=== PATIENT | female | born 1985 | race American Indian/Alaskan Native ===

== ENCOUNTER 2020-03-26 17:26 | Emergency (ER) | payer OTHER ==
[2020-03-26] MEDS ORDERED: SODIUM CHLORIDE 0.9% 1000 ML 1,000 ML IV ONE (17:48)
--- NOTE | 2020-03-26 17:49 | Emergency Department Report ---
ED Psych HPI - General Chief Complaint: Medical Clearance Stated Complaint: MH Time Seen by Provider: 03/26/20 17:36 Source: EMS Mode of arrival: Stretcher - History of Present Illness Initial Comments: Ms. Lara is a 34 years old female with no significant past medical history. Patient brought to the emergency room via EMS from a local gas station. Patient was laying on the grass in the parking lot of a [employer] gas station and then patient witnessed moving from the grass area to inside the bloody station looked at the camera in the down on the floor. Patient was not communicating with EMS however patient started talking after she get to the ER. Patient informed that she has been depressed for the last 2 weeks since she broke up with her girlfriend. Patient denied any suicidal ideation. She informed the nurse that she has been hearing voices however she denied that to me. She also denied any homicidal ideation or visual hallucination. Patient informed the nurse that she was taking Risperdal but she is out of it for the last 2 years. MD Complaint: feels depressed Associated Psychiatric Symptoms: depression - Related Data Allergies Allergy/AdvReac Type Severity Reaction Status Date / Time Unable to Assess Allergy Unverified 03/26/20 17:30 ED Review of Systems ROS: Stated complaint: MH Other details as noted in HPI Comment: All other systems reviewed and negative Constitutional: denies: chills, fever Respiratory: denies: cough, shortness of breath, SOB with exertion Cardiovascular: denies: chest pain, palpitations Gastrointestinal: denies: abdominal pain, nausea, vomiting, diarrhea, c onstipation, hematemesis, melena, hematochezia Neurological: denies: headache Psychiatric: depression, auditory hallucinations. denies: visual halluc inations, homicidal thoughts, suicidal thoughts ED Past Medical Hx - Social History Smoking Status: Unknown if ever smoked Substance Use Type: Other ED Physical Exam - General Limitations: Altered Mental Status General appearance: alert, in no apparent distress, other (Patient kept staring at the roof.) - ENT ENT exam: Present: mucous membranes dry - Neck Neck exam: Present: normal inspection, full ROM. Absent: tenderness, meningismus, lymphadenopathy, thyromegaly - Respiratory Respiratory exam: Present: normal lung sounds bilaterally - Cardiovascular Cardiovascular Exam: Present: regular rate, normal rhythm, normal heart sounds - GI/Abdominal GI/Abdominal exam: Present: soft, normal bowel sounds. Absent: distended, tenderness, guarding, rebound, rigid, organomegaly, mass, bruit, pulsatile mass, hernia - Extremities Exam Extremities exam: Present: normal inspection, full ROM, normal capillary refill. Absent: tenderness, pedal edema, joint swelling, calf tenderness - Back Exam Back exam: Present: normal inspection, full ROM. Absent: CVA tenderness (R), CVA tenderness (L) - Neurological Exam Neurological exam: Present: alert, oriented X3, CN II-XII intact, normal gait, reflexes normal. Absent: motor sensory deficit - Psychiatric Psychiatric exam: Present: depressed. Absent: manic, homicidal ideation, suicidal ideation - Skin Skin exam: Present: warm, intact, normal color ED Course Vital Signs 03/26/20 03/26/20 03/26/20 17:27 17:55 20:00 Temperature Pulse Rate 86 Respiratory 16 18 18 Rate Blood Pressure 141/92 Blood Pressure [Left] O2 Sat by Pulse 99 98 95 Oximetry 03/26/20 03/27/20 03/27/20 20:21 07:38 09:00 Temperature 98.7 F Pulse Rate 95 H 88 Respiratory 18 20 18 Rate Blood Pressure Blood Pressure 140/91 136/82 [Left] O2 Sat by Pulse 95 99 Oximetry ED Medical Decision Making - Lab Data Result diagrams: 03/26/20 18:43 03/26/20 17:55 - EKG Data -: EKG Interpreted by Me EKG shows normal: sinus rhythm Rate: normal - EKG Data Interpretation: no acute changes - Medical Decision Making Ms. Lara is a 34 years old female with no significant past medical history. Patient brought to the emergency room via EMS from a local gas station. Patient was laying on the grass in the parking lot of a [employer] station and then patient witnessed moving from the grass area to inside the [employer] station looked at the camera in the down on the floor. Patient was not communicating with EMS however patient started talking after she get to the ER. Patient informed that she has been depressed for the last 2 weeks since she broke up with her girlfri end. Patient denied any suicidal ideation. She informed the nurse that she has been hearing voices however she denied that to me. She also denied any homicidal ideation or visual hallucination. Patient informed the nurse that she was taking Risperdal but she is out of it for the last 2 years. Labs reviewed and is unremarkable. Patient obviously has acute psychosis. Patient is medically clear for psychiatric evaluation. Critical care attestation.: If time is entered above; I have spent that time in minutes in the direct care of this critically ill patient, excluding procedure time. ED Disposition Clinical Impression: Depression, Acute psychosis Disposition: [id number]/TX-65 PSY HOSP/PSY UNIT Is pt being admited?: No Condition: Stable Referrals: PRIMARY CARE, [Primary Care Provider] - 3-5 Days
[2020-03-26 18:31] LABS: BUN/Creatinine Ratio 14; Blood Urea Nitrogen 14 mg/dL (7-17); Calcium 9.2 mg/dL (8.4-10.2); Hemolysis Index 331
[2020-03-26 18:34] LABS: Alanine Aminotransferase 14 units/L (7-56); Albumin 3.9 g/dL (3.9-5)
[2020-03-26 19:04] LABS: Bilirubin,Direct < 0.2 mg/dL (0-0.2)
[2020-03-26 19:21] LABS: Hematocrit TNR % (30.3-42.9); Hemoglobin TNR gm/dl (10.1-14.3); Mean Corpuscular HGB Conc TNR % (30-34); Mean Corpuscular Volume TNR fl (79-97); Red Blood Count TNR M/mm3 (3.65-5.03); Red Cell Distribution Width TNR % (13.2-15.2)
[2020-03-26 19:22] LABS: Platelet Count TNR K/mm3 (140-440)
[2020-03-26 19:28] LABS: Basophils # (Auto) 0.1 K/mm3 (0.0-0.1); Basophils % (Auto) 0.6 % (0.0-1.8); Eosinophils # (Auto) 0.1 K/mm3 (0.0-0.4); Hematocrit 41.3 % (30.3-42.9); Hemoglobin 13.9 gm/dl (10.1-14.3); Lymphocytes # (Auto) 1.4 K/mm3 (1.2-5.4); Lymphocytes % (Auto) 11.3 % (13.4-35.0); Mean Corpuscular HGB Conc 34 % (30-34); Mean Corpuscular Volume 94 fl (79-97); Monocytes # (Auto) 1.1 K/mm3 (0.0-0.8); Monocytes % (Auto) 8.9 % (0.0-7.3); Platelet Count 350 K/mm3 (140-440); Red Cell Distribution Width 14.2 % (13.2-15.2)
[2020-03-27 00:58] LABS: Bilirubin,Urine NEG (Negative); Blood,Urine NEG (Negative); Color,Urine Amber (Yellow); Mucus,Urine 3+ /HPF; Urobilinogen,Urine < 2.0 mg/dL (<2.0)
[2020-03-27 01:04] LABS: Amphetamine Screen,Urine PRESUMPTIVE NEGATIVE; Benzodiazepines Screen,Urine PRESUMPTIVE NEGATIVE; Cannabinoid Screen,Urine PRESUMPTIVE NEGATIVE; Cocaine Screen,Urine PRESUMPTIVE NEGATIVE; Methadone Screen,Urine PRESUMPTIVE NEGATIVE; Opiate Screen,Urine PRESUMPTIVE NEGATIVE
[2020-03-27] MEDS ORDERED: diphenhydrAMINE 50 MG/ML VIAL IM PRN (06:55)
[2020-03-27] MEDS ORDERED: LORazepam 2 MG/ML VIAL IM PRN (06:55)
[2020-03-27] MEDS ORDERED: HALOPERIDOL LACTATE 5 MG/1 ML INJ IM PRN (06:55)
--- NOTE | 2020-03-27 13:32 | Consultation ---
History of Present Illness - Reason for Consult Consult date: 03/27/20 Reason for consult: MHE Requesting physician: CATHIE AGUILERA - Chief Complaint Chief complaint: Feels depressed - History of Present Psychiatric Illness Per ED Provider: Marco is a 34 years old female with no significant past medical history. Patient brought to the emergency room via EMS from a local gas station. Patient was laying on the grass in the parking lot of a [employer] gas station and then patient witnessed moving from the grass area to inside the bloody station looked at the camera in the down on the floor. Patient was not communicating with EMS however patient started talking after she get to the ER. Patient informed that she has been depressed for the last 2 weeks since she broke up with her girlfriend. Patient denied any suicidal ideation. She informed the nurse that she has been hearing voices however she denied that to me. She also denied any homicidal ideation or visual hallucination. Patient informed the nurse that she was taking Risperdal but she is out of it for the last 2 years. Per MHA: Pt is a 34 year AA female; per nurses' note, "Pt talking, responding to internal stimuli, pt reports hearing voices, she states stopped taking Risperdal 2 years ago, states her mother had schizophrenia but she never got diagnosed. Pt reported to MD that she's depressed because girlfriend and her broke up."Pt reports that she has been diagnosed with Bipolar Disorder. "I'm supposed to go to my psychiatrist next week, but it's ok it will all fall in place. It's ok. [facility]" Pt reports that she has been off her medication for two years.Pt presents paranoid, delusional and responding to internal stimuli."I'm trying to see what is really going on." Pt is oriented to self only. Pt reports that she is experiencing AH; "this is my friend, but Im not trying to connect to that." Pt is whispering, "They are on the phone laughing at me; I can fool them... shhh.... I'm telling you that's what they are trying to do it get to [employer] and steal my schedule tomorrow. I need to get to [employer].... shhh." Pt continues to whispering. Pt is paranoid looking around the room during the assessment. "I see double spaces." Pt tries to convince the earth science faculty member to commu nicate with the people and family who are tracking her. "They took my house away and coming for the money. Stay away!!" Pt denies any thoughts or plans to harm others.Pt denies any thoughts or plans to harm self. Pt reports that she was staying with a girlfriend, but the relationship ended. "I[facility] been [facility] at [employer] [employer] [employer] Pt is employed at [employer], but pt is not sure if she is employed anymore.."[facility]". PSYCH HPI Patient is a 34-year-old -[place] female interviewed while in seclusion today with past psychiatric history of bipolar and schizophrenia. Patient r eports she is currently single, homeless and unemployed, reports she was brought to the hospital because she had passed out in the street and also passed out at the gas station and thinks it was mostly due to dehydration. Patient states she has no immediate family in [place], and she has not been taking her psychiatric medications in 2 years. Patient states she does hear voices, denies SI, HI and endorses to marijuanna use. PAST PSYCHIATRIC HISTORY Diagnoses: Bipolar and Schziphrenia Suicide attempts or Self-harm behavior: none reported Prior psychiatric hospitalizations: yes Substance Abuse history: marijuana Previous psychiatric medications tried: yes Outpatient treatment: unknown PAST MEDICAL HISTORY: none reported Family Psychiatric History: None reported or documented SOCIAL HISTORY Marital Status: Single Living Arrangements: Homeless Employment Status: unemployed Access to guns/weapons: none reported Education: College, IT drop out History of Abuse: none reported Legal History: yes REVIEW OF SYSTEMS Constitutional: Negative for weight loss ENT: Negative for stridor Respiratory: Negative for cough or hemoptysis All other systems reviewed and are negative MENTAL STATUS EXAMINATION General Appearance and Behavior: Age appropriate, poor hygiene, wearing appropriate clothes, poor eye contact, cooperative irritable with questioning. Cooperation: Participating Hostile and Guarded Psychomotor Behavior: , unremarkable and within normal limits Mood: "so so" Affect and affective range: Angry, irritable, Thought Process: Illogical Thought Content: Paranoid, Ideas of reference, Hallucinations including auditory Intellectual Functioning: Average Suicidal Ideation: Denies SI Homicidal Ideation: Denies HI Impulse Control: Impaired Insight and Judgment: Limited insight and judgment Memory: Normal Attention: Normal Orientation: Alert, oriented Assessment and Plan - Psychiatric problem (1) Schizoaffective disorder Current Visit: Yes Status: Acute RECOMMENDATIONS MEDICATIONS: Risperdal Risks, benefits and alternatives of medications discussed with the patient, questions answered and consent obtained from patient. PSYCHOTHERAPY: Supportive psychotherapy provided MEDICAL: Per primary team DELIRIUM PRECAUTIONS: Please re-orient patient frequently, keep lights on during the day, and minimize benzodiazepines and opiates as these medications could worsen patient's confusion. MECHANICAL MAINTENANCE FOREMAN: Per medical team DISPOSITION: Recommends acute inpatient psychiatric hospitalization at this time LEGAL STATUS: 1013 FOLLOW-UP: Will follow Thank you for the consult. Please contact with any questions and/or concerns. Medications and Allergies Allergies Allergy/AdvReac Type Severity Reaction Status Date / Time Unable to Assess Allergy Unverified 03/26/20 17:30 Active Meds: Active Medications Diphenhydramine HCl (Benadryl) 50 mg IM Q6H PRN PRN Reason: Agitation Last Admin: 03/27/20 07:00 Dose: 50 mg Documented by: Haloperidol Lactate (Haldol) 10 mg IM Q8H PRN PRN Reason: Agitation Lorazepam (Ativan) 2 mg IM Q8H PRN PRN Reason: Agitation Last Admin: 03/27/20 07:00 Dose: 2 mg Documented by: Mental Status Exam - Vital signs Last Vital Signs Temp 98.7 F 03/26/20 20:21 Pulse 95 H 03/26/20 20:21 Resp 20 03/27/20 07:38 BP 140/91 03/26/20 20:21 Pulse Ox 95 03/26/20 20:21 Results Result Diagrams: 03/26/20 18:43 03/26/20 17:55 Abnormal lab results 03/26/20 03/26/20 03/26/20 Range/Units 17:55 18:02 18:02 WBC (4.5-11.0) K/mm3 Lymph % (Auto) (13.4-35.0) % [place] % (Auto) (0.0-7.3) % [place] # (0.0-0.8) K/mm3 Seg Neutrophils % (40.0-70.0) % Seg Neutrophils # (1.8-7.7) K/mm3 Potassium 5.2 H (3.6-5.0) mmol/L AST (5-40) units/L Total Creatine Kinase (30-135) units/L Ur Specific [place] (1.003-1.030) Urine WBC (Auto) (0.0-6.0) /HPF Salicylates < 0.3 L (2.8-20.0) mg/dL Acetaminophen 5.0 L (10.0-30.0) ug/mL 03/26/20 03/26/20 03/26/20 Range/Units 18:02 18:02 18:43 WBC 12.1 H (4.5-11.0) K/mm3 Lymph % (Auto) 11.3 L (13.4-35.0) % [place] % (Auto) 8.9 H (0.0-7.3) % [place] # 1.1 H (0.0-0.8) K/mm3 Seg Neutrophils % 78.2 H (40.0-70.0) % Seg Neutrophils # 9.4 H (1.8-7.7) K/mm3 Potassium (3.6-5.0) mmol/L AST 42 H (5-40) units/L Total Creatine Kinase 741 H (30-135) units/L Ur Specific [place] (1.003-1.030) Urine WBC (Auto) (0.0-6.0) /HPF Salicylates (2.8-20.0) mg/dL Acetaminophen (10.0-30.0) ug/mL 03/26/20 Range/Units 23:45 WBC (4.5-11.0) K/mm3 Lymph % (Auto) (13.4-35.0) % [place] % (Auto) (0.0-7.3) % [place] # (0.0-0.8) K/mm3 Seg Neutrophils % (40.0-70.0) % Seg Neutrophils # (1.8-7.7) K/mm3 Potassium (3.6-5.0) mmol/L AST (5-40) units/L Total Creatine Kinase (30-135) units/L Ur Specific [place] 1.035 H (1.003-1.030) Urine WBC (Auto) 7.0 H (0.0-6.0) /HPF Salicylates (2.8-20.0) mg/dL Acetaminophen (10.0-30.0) ug/mL All other labs normal. Assessment and Plan - Psychiatric problem (1) Schizoaffective disorder Current Visit: Yes Status: Acute
[2020-03-27 18:48] VITALS: BP 136/82
[2020-03-27] MEDS ORDERED: risperiDONE 0.25 MG TAB PO SCH (22:00)
== END 2020-03-27 20:51 ==
LOC: ED 17:26 → EEVIPCON 17:26 → ED 03-27 20:51
DX: F23 Brief psychotic disorder (principal); F32.9 Major depressive disorder, single episode, unspecified
CPT/HCPCS: 36415; 80048; 80076; 80307; 81001; 82550; 84703; 85007; 85025; 93005; 96360; 96372; 99285; J1200; J2060; J7030; 80320; G0480

== ENCOUNTER 2021-07-05 19:06 | Emergency (ER) | payer OTHER ==
--- NOTE | 2021-07-05 21:47 | Emergency Department Report ---
ED Psych HPI - General Stated Complaint: PSYCH Time Seen by Provider: 07/05/21 21:15 - History of Present Illness Initial Comments: 35-year-old female with HIV and mood swing/bipolar presents to the hospital brought and [place] [employer] found her nonverbal at a bus stop. Patient is speaking intermittently. She denies having any medical histories. With further questioning patient shut down, stopped answering questions, refused to answer whether or not she is hearing voices, suicidal, or homicidal. As per previous medical record from March 2020 visit PSYCH HPI Patient is a 34-year-old -[place] female interviewed while in seclusion today with past psychiatric history of bipolar and schizophrenia. Patient reports she is currently single, homeless and unemployed, reports she was brought to the hospital because she had passed out in the street and also passed out at the gas station and thinks it was mostly due to dehydration. Patient states she has no immediate family in [place], and she has not been taking her ps ychiatric medications in 2 years. Patient states she does hear voices, denies SI, HI and endorses to marijuanna use. - Related Data Allergies Allergy/AdvReac Type Severity Reaction Status Date / Time No Known Allergies Allergy Verified 07/05/21 22:23 ED Review of Systems ROS: Stated complaint: PSYCH Other details as noted in HPI Comment: Unobtainable due to pts medical conditions ED Past Medical Hx - Past Medical History Hx Psychiatric Treatment: (bipolar, schizophrenia) Hx HIV: Yes - Social History Smoking Status: Unknown if ever smoked Substance Use Type: Other ED Physical Exam - Other Other exam information: General: No acute distress Head: Atraumatic Eyes: normal appearance ENT: Moist mucous membranes Neck: Normal appearance Chest: Clear to auscultation bilaterally CV: mild tachycardia Abdomen: Soft, normal bowel sounds, nontender, nondistended, no rebound or guarding Back: Normal inspection Extremity: Normal inspection, full range of motion Neuro: Alert O x 3, no facial asymmetry, speech clear, no gross motor sensory deficit, gait steady Psych: Intermittently speaking, angry affect Skin: No rash ED Course Vital Signs 07/05/21 07/06/21 07/06/21 22:35 01:27 05:22 Temperature 98.3 F 98.4 F Pulse Rate 117 H 79 Respiratory 18 18 18 Rate Blood Pressure 137/76 130/76 [Left] O2 Sat by Pulse 99 98 98 Oximetry - Reevaluation(s) Reevaluation #1: 07/05/21 22:24 Patient was speaking to the nurse. Patient denies suicidal or homicidal ideation. She also denies all hallucinations. She states that when the police approached her she refused to speak because she has mood swings. She endorses that she is compliant with her HIV medication, Risperdal, and Depakote. 07/05/21 23:00 I was informed by nurse that patient is having active psychosis. She is paranoid that getting her blood pressure check with sent her to help. She is seeing people stating that they are coming to get her to take her to help. Lucille rodrigueznt also intermittently blocking the path of the nurse from exiting the psych area. 1013. Signed for acute psychosis with labile mood. Steffen ordered ED Medical Decision Making - Lab Data Result diagrams: 07/05/21 23:21 07/05/21 23:21 Lab Results 07/05/21 07/05/21 07/05/21 Range/Units 23:21 23:21 23:21 WBC 11.1 H (4.5-11.0) K/mm3 RBC 4.14 (3.65-5.03) M/mm3 Hgb 13.2 (10.1-14.3) gm/dl Hct 39.6 (30.3-42.9) % MCV 96 (79-97) fl MCH 32 (28-32) pg MCHC 33 (30-34) % RDW 14.6 (13.2-15.2) % Plt Count 353 (140-440) K/mm3 Lymph % (Auto) 18.3 (13.4-35.0) % [place] % (Auto) 11.1 H (0.0-7.3) % Eos % (Auto) 0.8 (0.0-4.3) % Baso % (Auto) 1.0 (0.0-1.8) % Lymph # (Auto) 2.0 (1.2-5.4) K/mm3 [place] # (Auto) 1.2 H (0.0-0.8) K/mm3 Eos # (Auto) 0.1 (0.0-0.4) K/mm3 Baso # (Auto) 0.1 (0.0-0.1) K/mm3 Seg Neutrophils % 68.8 (40.0-70.0) % Seg Neutrophils # 7.6 (1.8-7.7) K/mm3 Sodium 142 (137-145) mmol/L Potassium 3.9 (3.6-5.0) mmol/L Chloride 104.6 (98-107) mmol/L Carbon Dioxide 21 L (22-30) mmol/L Anion Gap 20 mmol/L BUN 14 (7-17) mg/dL Creatinine 0.7 (0.6-1.2) mg/dL Estimated GFR > 60 ml/min BUN/Creatinine Ratio 20 % Glucose 123 H (65-100) mg/dL Calcium 9.1 (8.4-10.2) mg/dL HCG, Qual (Negative) Salicylates < 0.3 L (2.8-20.0) mg/dL Acetaminophen (10.0-30.0) ug/mL Plasma/Serum Alcohol (0-0.07) % 07/05/21 07/05/21 07/05/21 Range/Units 23:21 23:21 23:21 WBC (4.5-11.0) K/mm3 RBC (3.65-5.03) M/mm3 Hgb (10.1-14.3) gm/dl Hct (30.3-42.9) % MCV (79-97) fl MCH (28-32) pg MCHC (30-34) % RDW (13.2-15.2) % Plt Count (140-440) K/mm3 Lymph % (Auto) (13.4-35.0) % Div[place] % (Auto) (0.0-7.3) % Eos % (Auto) (0.0-4.3) % Baso % (Auto) (0.0-1.8) % Lymph # (Auto) (1.2-5.4) K/mm3 [place] # (Auto) (0.0-0.8) K/mm3 Eos # (Auto) (0.0-0.4) K/mm3 Baso # (Auto) (0.0-0.1) K/mm3 Seg Neutrophils % (40.0-70.0) % Seg Neutrophils # (1.8-7.7) K/mm3 Sodium (137-145) mmol/L Potassium (3.6-5.0) mmol/L Chloride (98-107) mmol/L Carbon Dioxide (22-30) mmol/L Anion Gap mmol/L BUN (7-17) mg/dL Creatinine (0.6-1.2) mg/dL Estimated GFR ml/min BUN/Creatinine Ratio % Glucose (65-100) mg/dL Calcium (8.4-10.2) mg/dL HCG, Qual Negative (Negative) Salicylates (2.8-20.0) mg/dL Acetaminophen 5.0 L (10.0-30.0) ug/mL Plasma/Serum Alcohol < 0.01 (0-0.07) % - Medical Decision Making 1013 signed for acute psychosis with labile mood. Medical cleared by pending urine collection Critical Care Time: No Critical care attestation.: If time is entered above; I have spent that time in minutes in the direct care of this critically ill patient, excluding procedure time. ED Disposition Clinical Impression: Schizoaffective disorder, Labile mood, Acute psychosis, HIV (human immunodeficiency virus infection) Disposition: [address] [place] [address] Is pt being admited?: No Does the pt Need Aspirin: No Condition: Stable Instructions: Dysphoria, Managing Schizoaffective Disorder Additional Instructions: Take your medication as prescribed. Follow-up with your doctor or doctor/clinic provided. Return if symptoms worsen as indicated by your discharge instructions. Referrals: [facility] [Provider Group] - 3-5 Days [facility] [Outside] - 3-5 Days
[2021-07-05] MEDS ORDERED: diphenhydrAMINE 50 MG/ML VIAL IM ONE (22:59)
[2021-07-05] MEDS ORDERED: ZIPRASIDONE MESYLATE 20 MG VIAL IM ONE (22:59)
[2021-07-05 23:48] LABS: Basophils # (Auto) 0.1 K/mm3 (0.0-0.1); Eosinophils # (Auto) 0.1 K/mm3 (0.0-0.4); Eosinophils % (Auto) 0.8 % (0.0-4.3); Hematocrit 39.6 % (30.3-42.9); Hemoglobin 13.2 gm/dl (10.1-14.3); Lymphocytes % (Auto) 18.3 % (13.4-35.0); Mean Corpuscular HGB Conc 33 % (30-34); Mean Corpuscular Volume 96 fl (79-97); Monocytes # (Auto) 1.2 K/mm3 (0.0-0.8); Monocytes % (Auto) 11.1 % (0.0-7.3); Platelet Count 353 K/mm3 (140-440); Red Blood Count 4.14 M/mm3 (3.65-5.03); Red Cell Distribution Width 14.6 % (13.2-15.2)
[2021-07-06 00:17] LABS: Blood Urea Nitrogen 14 mg/dL (7-17); Calcium 9.1 mg/dL (8.4-10.2); Hemolysis Index 22
[2021-07-06 00:40] LABS: BUN/Creatinine Ratio 20
[2021-07-06] MEDS ORDERED: LORazepam 2 MG/ML VIAL IM ONE (07:31)
--- NOTE | 2021-07-06 07:34 | Emergency Department Report ---
Blank Doc - Documentation Documentation: This patient was made a 1013 by the overnight physician secondary to acute psy chosis. She received 20 mg of Geodon and 50 mg of Benadryl at about 10:30 PM. This morning, around 7:20 AM, I suddenly heard this patient persistently yelling. At first it sounded like the patient was having argument with another psychiatric patient. However, the patient is talking to herself and responding to internal stimuli. At this time she is not redirectable. She still has not had a psychiatric evaluation yet. She will receive a dose of Ativan to help with this psychosis and agitation. We will continue to monitor during her ED course.
--- NOTE | 2021-07-06 10:43 | Consultation ---
History of Present Illness - Reason for Consult Consult date: 07/06/21 Reason for consult: mental health evaluation - History of Present Psychiatric Illness Per ED Note: 35-year-old female with HIV and mood swing/bipolar presents to the hospital brought and [place] [employer] found her nonverbal at a bus stop. Patient is speaking intermittently. She denies having any medical histories. With further questioning patient shut down, stopped answering questions, refused to answer whether or not she is hearing voices, suicidal, or homicidal. This patient was made a 1013 by the overnight physician secondary to acute p sychosis. She received 20 mg of Geodon and 50 mg of Benadryl at about 10:30 PM. This morning, around 7:20 AM, I suddenly heard this patient persistently yelling. At first it sounded like the patient was having argument with another psychiatric patient. However, the patient is talking to herself and responding to internal stimuli. Kaylah Lara is a 35 year old female with history of Schizophrenia and Bipolar disorder. The patient is seen raising her right hand and responding to internal stimuli. She is labile and becomes loud sometimes during the assessment. She states that she came because she needs her medications. The patient denies suicidal/homicidal ideation. PAST PSYCHIATRIC HISTORY Diagnoses: Bipolar and Schizophrenia Suicide attempts or Self-harm behavior: none reported Prior psychiatric hospitalizations: yes Substance Abuse history: marijuana Previous psychiatric medications tried: yes Outpatient treatment: unknown PAST MEDICAL HISTORY: none reported Family Psychiatric History: None reported or documented SOCIAL HISTORY Marital Status: Single Living Arrangements: Homeless Employment Status: unemployed Access to guns/weapons: none reported Education: College, IT drop out History of Abuse: none reported Legal History: yes REVIEW OF SYSTEMS Constitutional: Negative for weight loss ENT: Negative for stridor Respiratory: Negative for cough or hemoptysis All other systems reviewed and are negative MENTAL STATUS EXAMINATION General Appearance and Behavior: Age appropriate, poor hygiene, wearing appropriate clothes, poor eye contact, cooperative irritable with questioning. Cooperation: Participating Hostile and Guarded Psychomotor Behavior: , unremarkable and within normal limits Mood: "ok" Affect and affective range: Angry, irritable, Thought Process: Illogical Thought Content: Paranoid, Ideas of reference, Hallucinations including auditory Intellectual Functioning: Average Suicidal Ideation: Denies SI Homicidal Ideation: Denies HI Impulse Control: Impaired Insight and Judgment: Limited insight and poor judgment Memory: Normal Attention: Normal Orientation: Alert, oriented Assessment and Plan - Psychiatric problem (1) Schizoaffective disorder Current Visit: Yes Status: Acute RECOMMENDATIONS Start Zyprexa 10mg po BID Start Depakote 125mg po BID MEDICATIONS: Risks, benefits and alternatives of medications discussed with the patient, questions answered and consent obtained from patient. PSYCHOTHERAPY: Supportive psychotherapy provided MEDICAL: Per primary team DELIRIUM PRECAUTIONS: Please re-orient patient frequently, keep lights on during the day, and minimize benzodiazepines and opiates as these medications could worsen patient's confusion. CRAS: Per medical team DISPOSITION: Recommends acute inpatient psychiatric hospitalization at this time LEGAL STATUS: 1013 FOLLOW-UP: Will follow Thank you for the consult. Please contact with any questions and/or concerns. Medications and Allergies Allergies Allergy/AdvReac Type Severity Reaction Status Date / Time No Known Allergies Allergy Verified 07/05/21 22:23 Mental Status Exam - Vital signs Last Vital Signs Temp 98.6 F 07/06/21 09:20 Pulse 105 H 07/06/21 09:20 Resp 20 07/06/21 09:20 BP 146/83 07/06/21 09:20 Pulse Ox 98 07/06/21 09:20 Results Result Diagrams: 07/05/21 23:21 07/05/21 23:21 Abnormal lab results 07/05/21 07/05/21 07/05/21 Range/Units 23:21 23:21 23:21 WBC 11.1 H (4.5-11.0) K/mm3 [place] % (Auto) 11.1 H (0.0-7.3) % [place] # (Auto) 1.2 H (0.0-0.8) K/mm3 Carbon Dioxide 21 L (22-30) mmol/L Glucose 123 H (65-100) mg/dL Salicylates < 0.3 L (2.8-20.0) mg/dL Acetaminophen (10.0-30.0) ug/mL 07/05/21 Range/Units 23:21 WBC (4.5-11.0) K/mm3 [place] % (Auto) (0.0-7.3) % [place] # (Auto) (0.0-0.8) K/mm3 Carbon Dioxide (22-30) mmol/L Glucose (65-100) mg/dL Salicylates (2.8-20.0) mg/dL Acetaminophen 5.0 L (10.0-30.0) ug/mL All other labs normal.
[2021-07-06] MEDS: DIVALPROEX DR 125 MG TAB PO SCH ×3 (11:49→22:09)
[2021-07-06 20:19] LABS: Bilirubin,Urine NEG (Negative); Blood,Urine NEG (Negative); Color,Urine Yellow (Yellow); Mucus,Urine 2+ /HPF
[2021-07-06 20:24] LABS: Amphetamine Screen,Urine Negative; Benzodiazepines Screen,Urine Negative; Cannabinoid Screen,Urine Negative; Cocaine Screen,Urine Negative; Methadone Screen,Urine Negative; Opiate Screen,Urine Negative
[2021-07-06] MEDS ORDERED: ZIPRASIDONE MESYLATE 20 MG VIAL IM ONE (22:20)
--- NOTE | 2021-07-07 09:30 | Progress Note ---
Subjective - Reason for Consult Consult date: 07/07/21 Reason for consult: mental health evaluation - Chief Complaint Chief complaint: The patient is seen this morning, she is mute, refusing to speak to this tech writer. Per nurse, the patient continues to be noncompliant with psychotropic medications. REVIEW OF SYSTEMS Constitutional: Negative for weight loss ENT: Negative for stridor Respiratory: Negative for cough or hemoptysis All other systems reviewed and are negative MENTAL STATUS EXAMINATION General Appearance and Behavior: Age appropriate, poor hygiene, wearing appropriate clothes, poor eye contact, cooperative irritable with questioning. Cooperation: Participating Hostile and Guarded Psychomotor Behavior: , unremarkable and within normal limits Mood: Affect and affective range: Angry, irritable, Thought Process: Illogical Thought Content: Paranoid, Ideas of reference, Hallucinations including auditory Intellectual Functioning: Average Suicidal Ideation: Denies SI Homicidal Ideation: Denies HI Impulse Control: Impaired Insight and Judgment: Limited insight and poor judgment Memory: Normal Attention: Normal Orientation: Alert, oriented Assessment and Plan - Psychiatric problem (1) Schizoaffective disorder Current Visit: Yes Status: Acute RECOMMENDATIONS Start Zyprexa 10mg po BID Start Depakote 125mg po BID MEDICATIONS: Risks, benefits and alternatives of medications discussed with the patient, questions answered and consent obtained from patient. PSYCHOTHERAPY: Supportive psychotherapy provided MEDICAL: Per primary team DELIRIUM PRECAUTIONS: Please re-orient patient frequently, keep lights on during the day, and minimize benzodiazepines and opiates as these medications could worsen patient's confusion. TERRITORY SALES MANAGER: Per medical team DISPOSITION: Recommends acute inpatient psychiatric hospitalization at this time LEGAL STATUS: 1013 FOLLOW-UP: Will follow Thank you for the consult. Please contact with any questions and/or concerns. Medications and Allergies Mental Status Exam - Vital signs Last Vital Signs Temp 98.6 F 07/06/21 19:42 Pulse 90 07/07/21 02:38 Resp 18 07/07/21 02:38 BP 145/95 07/07/21 02:38 Pulse Ox 96 07/07/21 02:38
[2021-07-07] MEDS: DIVALPROEX DR 125 MG TAB PO SCH ×2 (10:23→22:29)
--- NOTE | 2021-07-07 11:32 | Event Note ---
Date: 07/07/21 S: No events reported overnight O: Vital Signs - 8 hr 07/07/21 10:26 Temperature 98.2 F Pulse Rate 96 H Respiratory 18 Rate Blood Pressure 149/97 [Left] O2 Sat by Pulse 98 Oximetry A: Schizoaffective disorder P: 1013, awaiting inpatient psych
[2021-07-08] MEDS: DIVALPROEX DR 125 MG TAB PO SCH (09:49)
--- NOTE | 2021-07-08 10:42 | Progress Note ---
Subjective - Reason for Consult Consult date: 07/08/21 Reason for consult: mental health evaluation - Chief Complaint Chief complaint: The patient is seen this morning, she reports doing well. She denies any current suicidal ideation and denies hallucinations. REVIEW OF SYSTEMS Constitutional: Negative for weight loss ENT: Negative for stridor Respiratory: Negative for cough or hemoptysis All other systems reviewed and are negative MENTAL STATUS EXAMINATION General Appearance and Behavior: Age appropriate, poor hygiene, wearing appropriate clothes, poor eye contact, cooperative irritable with questioning. Cooperation: Participating Hostile and Guarded Psychomotor Behavior: , unremarkable and within normal limits Mood: "Good" Affect and affective range:appropriate Thought Process: organized Thought Content: reality oriented Intellectual Functioning: Average Suicidal Ideation: Denies SI Homicidal Ideation: Denies HI Impulse Control: Impaired Insight and Judgment: Limited insight and good judgment Memory: Normal Attention: Normal Orientation: Alert, oriented Assessment and Plan - Psychiatric problem (1) Schizoaffective disorder Current Visit: Yes Status: Acute RECOMMENDATIONS continue Zyprexa 10mg po QHS continue Depakote 250 mg po BID MEDICATIONS: Risks, benefits and alternatives of medications discussed with the patient, questions answered and consent obtained from patient. PSYCHOTHERAPY: Supportive psychotherapy provided MEDICAL: Per primary team DELIRIUM PRECAUTIONS: Please re-orient patient frequently, keep lights on during the day, and minimize benzodiazepines and opiates as these medications could worsen patient's confusion. INOCULATOR: Per medical team DISPOSITION: Recommends acute inpatient psychiatric hospitalization at this time LEGAL STATUS: Discontinue 1013 FOLLOW-UP: Will sign off. The stencil typist will provide patient with psychiatric inpatient resources. Please contact with any questions and/or concerns. Medications and Allergies Mental Status Exam - Vital signs Last Vital Signs Temp 99.0 F 07/07/21 19:45 Pulse 90 07/07/21 19:45 Resp 18 07/07/21 19:45 BP 135/100 07/07/21 19:45 Pulse Ox 99 07/07/21 19:45
[2021-07-08 10:45] VITALS: BP 153/99
== END 2021-07-08 13:18 | disposition home or self-care (01) ==
LOC: ED 19:06
DX: F25.9 Schizoaffective disorder, unspecified (principal); R00.0 Tachycardia, unspecified; R45.86 Emotional lability; F23 Brief psychotic disorder; F31.9 Bipolar disorder, unspecified; Z20.822 Contact with and (suspected) exposure to COVID-19
CPT/HCPCS: 36415; 80048; 80307; 81001; 84703; 85025; 96372; 99284; J1200; J3486; U0003; 80320; G0480; J2060

== ENCOUNTER 2021-08-29 14:14 | Emergency (ER) | payer OTHER ==
[2021-08-29 14:31] VITALS: BP 173/114
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
[2021-08-29] MEDS ORDERED: SODIUM CHLORIDE 0.9% IRR 500 ML BOTTLE IR ONE (14:56)
== END 2021-08-29 15:02 | disposition home or self-care (01) ==
LOC: ED 14:14 → EEVIPCON 14:14 → ED 15:02
DX: Z04.1 Encounter for examination and observation following transport accident (principal); F31.9 Bipolar disorder, unspecified; F20.9 Schizophrenia, unspecified; V40.5XXA Car driver injured in collision with pedestrian or animal in traffic accident, initial encounter; Y93.89 Activity, other specified; Y92.89 Other specified places as the place of occurrence of the external cause; Y99.8 Other external cause status; E66.01 Morbid (severe) obesity due to excess calories
CPT/HCPCS: 99282